=== PATIENT | female | born 1960 | race African-American/Black ===

== ENCOUNTER 2018-03-30 10:28 | Emergency (ER) | payer OTHER ==
[~2018-03-30] VITALS: Ht 160 cm; Wt 65.8 kg
[2018-03-30 10:34] VITALS: Ht 160 cm; Wt 65.8 kg
[2018-03-30 11:04] LABS: BASOPHIL % 0.6 % (0-2); PLATELET COUNT 306 x10^3mcL (130-400)
[2018-03-30 11:16] LABS: CALCIUM 10.3 mg/dL (8.5-10.1); CARBON DIOXIDE 26.3 mmol/L (21-32); CREATININE SERUM 2.4 mg/dL (0.6-1.0); POTASSIUM SERUM 3.9 mmol/L (3.5-5.1)
[2018-03-30 11:20] LABS: ALBUMIN 4.6 g/dL (3.4-5.0); BILIRUBIN TOTAL 0.73 mg/dL (0.20-1.00)
[2018-03-30 11:21] LABS: TOTAL PROTEIN, SERUM 9.5 g/dL (6.4-8.2)
[2018-03-30 13:31] VITALS: BP 156/92
== END 2018-03-30 13:31 | disposition home or self-care (01) ==
LOC: ED 10:28
PROVIDERS: Emergency Medicine
DX: K57.90 Diverticulosis of intestine, part unspecified, without perforation or abscess without bleeding (principal); N28.9 Disorder of kidney and ureter, unspecified; G89.29 Other chronic pain; R10.84 Generalized abdominal pain; I10 Essential (primary) hypertension; F32.9 Major depressive disorder, single episode, unspecified; Z98.890 Other specified postprocedural states
CPT/HCPCS: J1885; J2270; J2405; J7030

== ENCOUNTER 2018-04-09 08:17 | Emergency (ER) | payer OTHER ==
[~2018-04-09] VITALS: Ht 160 cm; Wt 66.7 kg
[2018-04-09 08:26] VITALS: Ht 160 cm; Wt 66.7 kg
[2018-04-09 10:31] VITALS: BP 180/72
== END 2018-04-09 10:31 | disposition home or self-care (01) ==
LOC: ED 08:17
DX: S39.012A Strain of muscle, fascia and tendon of lower back, initial encounter (principal); F32.9 Major depressive disorder, single episode, unspecified; I10 Essential (primary) hypertension; Z98.890 Other specified postprocedural states; X58.XXXA Exposure to other specified factors, initial encounter; Y93.89 Activity, other specified; Y92.89 Other specified places as the place of occurrence of the external cause; Y99.8 Other external cause status
CPT/HCPCS: 72072; J1885; J3010; Q0162

== ENCOUNTER 2018-05-14 07:18 | Observation (INO) | payer OTHER ==
[~2018-05-14] VITALS: Ht 162.6 cm; Wt 65.5 kg
[2018-05-14 07:50] VITALS: Ht 162.6 cm; Wt 65.5 kg
[2018-05-14 08:17] LABS: BASOPHIL % 0.3 % (0-2); PLATELET COUNT 257 x10^3mcL (130-400); RED CELL DISTRIBUTION WIDTH 13.8 % (11.5-14.5)
[2018-05-14 08:30] LABS: CALCIUM 9.6 mg/dL (8.5-10.1); CARBON DIOXIDE 27.9 mmol/L (21-32); CREATININE SERUM 1.2 mg/dL (0.6-1.0)
[2018-05-14 08:34] LABS: ALBUMIN 3.7 g/dL (3.4-5.0); BILIRUBIN TOTAL 0.86 mg/dL (0.20-1.00); TOTAL PROTEIN, SERUM 8.1 g/dL (6.4-8.2)
[2018-05-14 09:54] LABS: microscopic required? YES; urine erythrocyte TRACE (NEGATIVE)
[2018-05-14] MEDS ORDERED: KAPVAY0.1 MG PO (11:05)
[2018-05-14] MEDS ORDERED: DEXAMETHASONE4 MG PO (11:05)
[2018-05-14] MEDS ORDERED: PEPCID20 MG PO (11:06)
[2018-05-14] MEDS ORDERED: ACETAMINOPHEN-H1 TA1 PO (11:07)
[2018-05-14] MEDS ORDERED: ESCITALOPRAM10 M1 PO (11:07)
[2018-05-14] MEDS ORDERED: AMLODIPINE BESY10 M2 PO (11:08)
[2018-05-14] MEDS ORDERED: ZESTRIL20 MG PO (11:08)
[2018-05-14] MEDS ORDERED: VALIUM5 MG PO (11:09)
[2018-05-14 17:55] VITALS: BP 166/94
[2018-05-14 21:18] VITALS: BP 151/78
[2018-05-15 05:32] VITALS: BP 124/67
[2018-05-15 06:52] LABS: BASOPHIL % 0.5 % (0-2); PLATELET COUNT 215 x10^3mcL (130-400)
[2018-05-15 06:55] LABS: CALCIUM 9.4 mg/dL (8.5-10.1); CARBON DIOXIDE 27.9 mmol/L (21-32); CREATININE SERUM 1.3 mg/dL (0.6-1.0); POTASSIUM SERUM 4.3 mmol/L (3.5-5.1)
[2018-05-15 08:33] VITALS: BP 139/71
[2018-05-15] MEDS ORDERED: KEFLEX500 M1 PO (13:29)
[2018-05-15 14:13] VITALS: BP 139/71
== END 2018-05-15 15:25 | disposition home or self-care (01) | DRG 690 ==
LOC: ED 07:18 → MU 16:48 → EDBEDREQ 16:51 → MU 17:35
PROVIDERS: Emergency Medicine; ADMIT Internal Medicine
DX: N10 Acute pyelonephritis (principal); C41.2 Malignant neoplasm of vertebral column; I16.0 Hypertensive urgency; I10 Essential (primary) hypertension; E86.0 Dehydration; R11.2 Nausea with vomiting, unspecified; M54.5 Low back pain; M62.830 Muscle spasm of back; F41.9 Anxiety disorder, unspecified; F32.9 Major depressive disorder, single episode, unspecified; Z98.890 Other specified postprocedural states; Z79.899 Other long term (current) drug therapy
CPT/HCPCS: 97116-GP; 97530-GP; G0378; J0696; J1650; J2405; J3490; J7030; J8540; Q0092; Q9967

== ENCOUNTER 2018-05-20 09:29 | Inpatient (IN) | payer OTHER ==
[~2018-05-20] VITALS: Ht 162.6 cm; Wt 65.3 kg
[~2018-05-20 09:29] MED LIST: ACETAMINOPHEN-H1 TA1 PO; AMLODIPINE BESY10 M2 PO; DEXAMETHASONE4 MG PO; ESCITALOPRAM10 M1 PO; KAPVAY0.1 MG PO; KEFLEX500 M1 PO; PEPCID20 MG PO; VALIUM5 MG PO; ZESTRIL20 MG PO
[2018-05-20 09:38] VITALS: Ht 162.6 cm; Wt 65.3 kg
[2018-05-20 10:32] LABS: PLATELET COUNT 256 x10^3mcL (130-400); RED CELL DISTRIBUTION WIDTH 13.9 % (11.5-14.5)
[2018-05-20 10:33] LABS: BASOPHIL % 0 % (0-2)
[2018-05-20 10:47] LABS: CALCIUM 9.7 mg/dL (8.5-10.1); CARBON DIOXIDE 30.7 mmol/L (21-32); CREATININE SERUM 1.3 mg/dL (0.6-1.0); POTASSIUM SERUM 4.3 mmol/L (3.5-5.1)
[2018-05-20 10:51] LABS: ALBUMIN 3.8 g/dL (3.4-5.0); BILIRUBIN TOTAL 0.72 mg/dL (0.20-1.00); TOTAL PROTEIN, SERUM 7.8 g/dL (6.4-8.2)
[2018-05-20 17:10] LABS: UA SPECIFIC GRAVITY >=1.030 (1.005-1.035); microscopic required? YES; urine erythrocyte NEGATIVE (NEGATIVE)
[2018-05-20 21:03] VITALS: BP 134/69
[2018-05-20 22:41] VITALS: BP 134/69
[2018-05-21 05:35] VITALS: BP 114/64
[2018-05-21 09:04] VITALS: BP 113/61
[2018-05-21 11:12] VITALS: BP 134/69
[2018-05-21 12:51] VITALS: BP 114/64
[2018-05-21 12:54] VITALS: BP 126/78
== END 2018-05-21 13:38 | disposition short-term general hospital (02) | DRG 55 ==
LOC: ED 09:29 → MU 11:38
PROVIDERS: Emergency Medicine; ADMIT Internal Medicine Pulmonary Disease
DX: D43.4 Neoplasm of uncertain behavior of spinal cord (principal); G95.29 Other cord compression; I10 Essential (primary) hypertension; R26.2 Difficulty in walking, not elsewhere classified; R29.6 Repeated falls; E66.9 Obesity, unspecified
CPT/HCPCS: J1170; J2270; J7030; J8540; Q0092; Q0162